=== PATIENT | male | born 1970 | race Caucasian/White ===

== ENCOUNTER 2022-08-28 07:15 | Inpatient (IN) | payer OTHER ==
[~2022-08-28] VITALS: Ht 175.3 cm; Wt 54.4 kg
[2022-08-28] MEDS ORDERED: SODIUM CHLORIDE 0.9% 1000ML BAG (SEPSIS BOLUS) IV ONE (07:45)
[2022-08-28 08:10] LABS: CHLORIDE 112 mEq/L (98-107)
[2022-08-28 08:26] LABS: D-DIMER 2.49 mg/L FEU (<0.50); INR 1.1; PROTHROMBIN TIME 11.6 sec (9.6-11.0)
[2022-08-28] MEDS ORDERED: VANCOMYCIN 1G PREMIX 200 ML IV ONE (09:15)
[2022-08-28] MEDS ORDERED: PIPERACILLIN/TAZ 3.375G PREMIX 50 ML IV ONE (09:15)
[2022-08-28 09:19] LABS: BG BASE EXCESS -6.4 mmol/L (-2.0-2.0); BG CARBOXYHEMOGLOBIN 0.2 % (0.5-1.5); BG DEOXYHEMOGLOBIN 2.3 % (0.0-5.0); BG FRACTION INSPIRED OXYGEN 36; BG HCO3 ACT 17.6 mmol/L (22.0-26.0); BG METHEMOGLOBIN 0.2 % (0.0-1.5); BG OXYGEN SATURATION 97.7 % (92.0-98.5); BG OXYHEMOGLOBIN 97.3 % (94.0-97.0); BG PH 7.401 (7.350-7.450); BG PO2 128.6 mmHg (75.0-100.0); BG SAMPLE SITE RIGHT BRACHIAL; BG TOTAL HEMOGLOBIN 7.8 g/dL (12.0-18.0); BG VENT MODE NASAL CANNULA
[2022-08-28 09:20] LABS: HEMATOCRIT. 22.6 % (42.0-52.0); HEMOGLOBIN. 7.4 g/dL (14.0-18.0); MEAN CORPUSCULAR HEMOGLOBIN 31.1 pg (28.0-32.0); MEAN CORPUSCULAR VOLUME 94.9 fL (80.0-94.0); MEAN PLATELET VOLUME 7.2 fl (7.4-10.4); PLATELET 280 x1000/uL (130-400); RED BLOOD CELL COUNT 2.38 mill/uL (4.7-6.1); RED CELL DISTRIBUTION WIDTH 15.4 % (11.6-14.6)
[2022-08-28 10:08] LABS: PLATELET ESTIMATE NORMAL
[2022-08-28] MEDS ORDERED: IOHEXOL-350 100 ML BOTTLE ONE (10:57)
[2022-08-28 11:43] LABS: CLARITY URINE CLEAR (CLEAR); COLOR URINE YELLOW (YELLOW); KETONES URINE NEGATIVE (NEGATIVE); LEUKOCYTE ESTERASE URINE NEGATIVE (NEGATIVE); NITRITE URINE NEGATIVE (NEGATIVE); OCCULT BLOOD URINE NEGATIVE (NEGATIVE); PROTEIN URINE NEGATIVE (NEGATIVE); SPECIFIC GRAVITY URINE 1.009 (1.005-1.030); UROBILINOGEN URINE 0.2 E.U./dL (0.2-1.0)
[2022-08-28] MEDS ORDERED: DEXTROSE 50% WATER 50ML SYRINGE IV ONE (12:30)
[2022-08-28] MEDS: DEXT 5%/0.45% NACL 1000ML 1,000 ML IV SCH (13:30)
[2022-08-28] MEDS ORDERED: ONDANSETRON HCL 4MG/2ML INJ IV PRN (13:30)
[2022-08-28] MEDS: DOCUSATE SODIUM 250MG CAPSULE PO SCH (13:30)
[2022-08-28] MEDS ORDERED: LACTULOSE 20G/30ML UDC PO NR (13:30)
[2022-08-28] MEDS ORDERED: IPRATROPIUM BROMIDE (0.02%) 0.5MG/2.5ML NEB HHN PRN (13:30)
[2022-08-28] MEDS ORDERED: GUAIFENESIN-DM 200MG-20MG/10ML UDC PO PRN (13:30)
[2022-08-28 14:22] LABS: TOTAL IRON BINDING CAPACITY 198 ug/dL (250-450)
[2022-08-28 15:20] LABS: *AMPHETAMINES SCREEN URINE NEGATIVE (NEGATIVE); *BARBITURATES SCREEN URINE NEGATIVE (NEGATIVE); *BENZODIAZEPINES SCREEN URINE NEGATIVE (NEGATIVE); *COCAINE SCREEN URINE NEGATIVE (NEGATIVE); CANNABINOID URINE SCREEN NEGATIVE (NEGATIVE); METHADONE URINE SCREEN NEGATIVE (NEGATIVE); OPIATES URINE SCREEN NEGATIVE (NEGATIVE); PHENCYCLIDINE URINE SCREEN NEGATIVE (NEGATIVE)
[2022-08-28 16:30] VITALS: BP 144/85
[2022-08-28] MEDS ORDERED: PIPERACILLIN/TAZ 3.375G PREMIX 50 ML IV NR (17:00)
[2022-08-28 20:00] VITALS: BP 126/78
[2022-08-28] MEDS: PIPERACILLIN/TAZOBACTAM 3.375 G in DEXTROSE 5% WATER 50 ML IV SCH (20:46)
[2022-08-28] MEDS ORDERED: PIPERACILLIN/TAZOBACTAM 3.375 G in DEXTROSE 5% WATER 50 ML IV SCH (23:00)
[2022-08-29] VITALS: BP 117/72
[2022-08-29 04:00] VITALS: BP 108/73
[2022-08-29] MEDS: PIPERACILLIN/TAZOBACTAM 3.375 G in DEXTROSE 5% WATER 50 ML IV SCH ×3 (05:10→21:35)
[2022-08-29] MEDS: DEXTROSE 50% WATER 50ML SYRINGE IV PRN ×2 (05:54→20:14)
[2022-08-29 06:50] LABS: BASOPHILS % 0.3 % (0.0-2.0); EOSINOPHILS % 1.4 % (0.0-5.0); HEMATOCRIT. 21.9 % (42.0-52.0); HEMOGLOBIN. 7.3 g/dL (14.0-18.0); LYMPHOCYTES % 11.7 % (20.0-50.0); MEAN CORPUSCULAR HEMOGLOBIN 31.5 pg (28.0-32.0); MEAN CORPUSCULAR VOLUME 94.2 fL (80.0-94.0); MEAN PLATELET VOLUME 7.7 fl (7.4-10.4); MONOCYTES % 6.2 % (2.0-8.0); NEUTROPHILS % 80.4 % (40.0-76.0); PLATELET 280 x1000/uL (130-400); RED BLOOD CELL COUNT 2.32 mill/uL (4.7-6.1); RED CELL DISTRIBUTION WIDTH 15.5 % (11.6-14.6)
[2022-08-29 07:25] LABS: CHLORIDE 113 mEq/L (98-107)
[2022-08-29 08:00] VITALS: BP 122/73
[2022-08-29] MEDS: DEXT 5%/0.45% NACL 1000ML 1,000 ML IV SCH (09:17)
[2022-08-29] MEDS: DOCUSATE SODIUM 250MG CAPSULE PO SCH (09:17)
[2022-08-29 12:00] VITALS: BP 118/72
[2022-08-29] MEDS: ACETAMINOPHEN 325MG TABLET PO PRN ×2 (13:08→23:30)
[2022-08-29 16:00] VITALS: BP 116/68
[2022-08-29] MEDS ORDERED: DEXTROSE 50% WATER 50ML SYRINGE IV PRN (16:45)
[2022-08-29] MEDS: BLOOD SUGAR DIAGNOSTIC STRIP TEST SCH ×2 (16:47→20:17)
[2022-08-29] MEDS: INSULIN GLARGINE 100 UNITS/ML SUBCUT SCH (17:08)
[2022-08-29] MEDS: INSULIN LISPRO 100 UNITS/ML SUBCUT SCH ×2 (17:09→20:17)
[2022-08-29] MEDS: IRON SUCROSE COMPLEX 100 MG/5 ML ML IV SCH (18:07)
[2022-08-29 20:00] VITALS: BP 118/75
[2022-08-30] VITALS: BP 112/71
[2022-08-30] MEDS: PIPERACILLIN/TAZOBACTAM 3.375 G in DEXTROSE 5% WATER 50 ML IV SCH ×3 (05:04→22:02)
[2022-08-30] MEDS: BLOOD SUGAR DIAGNOSTIC STRIP TEST SCH ×4 (06:01→21:12)
[2022-08-30] MEDS: INSULIN LISPRO 100 UNITS/ML SUBCUT SCH ×4 (06:01→22:01)
[2022-08-30 08:00] VITALS: BP 124/76
[2022-08-30] MEDS: DOCUSATE SODIUM 250MG CAPSULE PO SCH (09:18)
[2022-08-30] MEDS: INSULIN GLARGINE 100 UNITS/ML SUBCUT SCH (09:22)
[2022-08-30 12:00] VITALS: BP 122/71
[2022-08-30] MEDS: LIDOCAINE 5% PATCH TOP SCH (13:21)
[2022-08-30 16:00] VITALS: BP 117/74
[2022-08-30] MEDS: IRON SUCROSE COMPLEX 100 MG/5 ML ML IV SCH (17:42)
[2022-08-30 20:00] VITALS: BP 108/69
[2022-08-31] VITALS: BP 115/73
[2022-08-31] MEDS: DEXTROSE 50% WATER 50ML SYRINGE IV PRN ×2 (01:10→01:27)
[2022-08-31 04:00] VITALS: BP 120/78
[2022-08-31] MEDS: BLOOD SUGAR DIAGNOSTIC STRIP TEST SCH ×2 (06:40→11:40)
[2022-08-31] MEDS: INSULIN LISPRO 100 UNITS/ML SUBCUT SCH (07:10)
[2022-08-31] MEDS: PIPERACILLIN/TAZOBACTAM 3.375 G in DEXTROSE 5% WATER 50 ML IV SCH ×2 (07:52→13:50)
[2022-08-31] MEDS ORDERED: LEVO750T68 MT (07:57)
[2022-08-31 08:00] VITALS: BP 110/72
[2022-08-31] MEDS: DOCUSATE SODIUM 250MG CAPSULE PO SCH (09:40)
[2022-08-31] MEDS: LIDOCAINE 5% PATCH TOP SCH (09:43)
[2022-08-31 12:00] VITALS: BP 116/77
[2022-08-31 14:14] VITALS: BP 116/77
== END 2022-08-31 16:00 | disposition home or self-care (01) | DRG 720 ==
LOC: ER 07:15 → EDBEDREQ 09:59 → EDBEDREQSVC 09:59 → MICUSO 12:12 → EDBEDREQ 12:21 → EDBEDREQTM 12:21 → 7EST 17:48
PROVIDERS: ADMIT Internal Medicine; ATTEND Internal Medicine
DX: A41.9 Sepsis, unspecified organism (principal); J96.01 Acute respiratory failure with hypoxia; E44.0 Moderate protein-calorie malnutrition; J18.9 Pneumonia, unspecified organism; E11.649 Type 2 diabetes mellitus with hypoglycemia without coma; K56.7 Ileus, unspecified; D64.9 Anemia, unspecified; K56.41 Fecal impaction; Z87.891 Personal history of nicotine dependence; Z68.1 Body mass index [BMI] 19.9 or less, adult; Z68.30 Body mass index [BMI] 30.0-30.9, adult; Z20.822 Contact with and (suspected) exposure to COVID-19; M94.0 Chondrocostal junction syndrome [Tietze]
CPT/HCPCS: 36415; 36600; 71045; 71275; 74177; 80048; 80053; 80305; 81003; 82375; 82728; 82805; 82962; 83036; 83540; 83550; 83605; 84145; 84484; 85025; 85379; 87186; 87426; 87804; 93005; 93306; 97116; 97162; 97166; 99291; C9803; J1815; J2543; J3370; J7030; J7060; Q9967